=== PATIENT | male | born 1955 | race Caucasian/White ===

== ENCOUNTER 2021-03-05 15:01 | Inpatient (IN) ==
[2021-03-05] MEDS ORDERED: Naloxone 0.4 MG/ML INJ IVP PRN (16:56)
[2021-03-05] MEDS ORDERED: Ondansetron 4 MG/2 ML VIAL IVP PRN (16:56)
[2021-03-05] MEDS ORDERED: *HR* OxyCODONE/APAP 5/325 TABLET PO PRN (16:58)
[2021-03-05] MEDS ORDERED: *HR* OxyCODONE/APAP 10/325 TABLET PO PRN (16:58)
[2021-03-05] MEDS ORDERED: Ringers Solution, Lactated 1,000 ML IVC SCH (17:00)
[2021-03-05 17:37] LABS: Eosinophils % 0.1 %
[2021-03-05 17:38] LABS: Basophils % 0.2 %; Hematocrit 36.6 % (37.5-50.1); Hemoglobin 10.9 g/dL (12.9-16.9); Immature Granulocytes % 0.9 % (0-4); Lymphocytes # 0.8 K/mcL (0.6-4.6); Lymphocytes % 5.8 %; Mean Corpuscular HGB Conc 29.8 g/dL (31.6-35.5); Mean Corpuscular Hemoglobin 26.4 pg (28.0-33.3); Mean Corpuscular Volume 88.6 fL (83.0-100.0); Mean Platelet Volume 8.6 fL (9.4-12.4); Monocytes # 0.4 K/mcL (0.0-1.3); Neutrophils # 12.3 K/mcL (1.6-8.9); Platelet Count 413 K/mcL (140-400); Red Blood Count 4.13 M/mcL (4.19-5.50); Red Cell Distribution Width 19.6 % (11.5-14.5); White Blood Count 13.7 K/mcL (4.3-11.1)
[2021-03-05 17:44] LABS: INR 1.1; Prothrombin Time 12.5 Seconds (9.4-12.1)
[2021-03-05 17:47] LABS: Activated Partial Thrombo Time 26.8 Seconds (26.0-36.0)
[2021-03-05 17:49] LABS: Calcium 9.1 mg/dL (8.6-10.3); Magnesium 2.3 mg/dL (1.6-2.6); Phosphorous 3.6 mg/dL (2.7-4.5); Potassium 4.8 mEq/L (3.5-5.1)
[2021-03-05] MEDS: Ipratropium/Albuterol Neb 3 ML IH PRN ×2 (18:02→23:29)
[2021-03-05 18:19] LABS: Anisocytosis 1+ (Not Present); Hypochromasia Present (Not Present); Polychromasia 1+ (Not Present)
[2021-03-06 02:22] LABS: Adenovirus Not Detected (Not Detect); Bordetella Pertussis Not Detected (Not Detect); Chlamydophila pneumoniae Not Detected (Not Detect); Coronavirus 229E Not Detected (Not Detect); Coronavirus HKU1 Not Detected (Not Detect); Coronavirus NL63 Not Detected (Not Detect); Coronavirus OC43 Not Detected (Not Detect); Human Metapneumovirus Not Detected (Not Detect); Human Rhinovirus/Enterovirus Not Detected (Not Detect); Influenza A Subtype 2009 H1 Not Detected (Not Detect); Influenza B Not Detected (Not Detect); Mycoplasma pneumoniae Not Detected (Not Detect); Parainfluenza Virus 1 Not Detected (Not Detect); Parainfluenza Virus 2 Not Detected (Not Detect); Parainfluenza Virus 3 Not Detected (Not Detect); Parainfluenza Virus 4 Not Detected (Not Detect); Respiratory Syncytial Virus Not Detected (Not Detect); SARS-CoV-2 Not Detected (Not Detect)
[2021-03-06] MEDS: Ipratropium/Albuterol Neb 3 ML IH SCH ×6 (03:25→23:09)
[2021-03-06] MEDS ORDERED: Lidocaine 1% 20 ML MDV ONE (07:21)
[2021-03-06] MEDS ORDERED: allopurinoL 100 MG TABLET PO SCH (09:00)
[2021-03-06] MEDS ORDERED: predniSONE 10 MG TABLET PO SCH (09:00)
[2021-03-06] MEDS ORDERED: Cyanocobalamin (Vitamin B-12) 100 MCG PO SCH (09:00)
[2021-03-06] MEDS ORDERED: Clindamycin 900 MG/50 ML 900 MG/50 ML IV.SOLN IVPB ONE ×2 (09:23→09:30)
[2021-03-06] MEDS ORDERED: *HR* Propofol 200 MG/20 ML VIAL IVP ONE (09:26)
[2021-03-06] MEDS ORDERED: *HR* FentaNYL (PF) 100 MCG/2 ML VIAL ONE (09:26)
[2021-03-06] MEDS ORDERED: Ondansetron 4 MG/2 ML VIAL ONE (09:26)
[2021-03-06] MEDS ORDERED: *HR* Rocuronium Bromide 50 MG/5 ML VIAL ONE (09:26)
[2021-03-06] MEDS ORDERED: Lidocaine -MPF 2% 2 ML VIAL ONE (09:26)
[2021-03-06] MEDS ORDERED: Lidocaine -MPF 4% 5 ML AMPUL ONE (09:26)
[2021-03-06] MEDS ORDERED: *HR* Midazolam HCl 2 MG/2 ML VIAL ONE (09:26)
[2021-03-06] MEDS ORDERED: ROPIVACAINE/PF/NS 0.25% 1 EACH SYRINGE INTRAART ONE (09:38)
[2021-03-06] MEDS ORDERED: Ropivacaine/PF 0.5% 30 ML VIAL ONE (09:38)
[2021-03-06] MEDS ORDERED: Acetaminophen IV 1,000 MG/100 ML BAG IVPB ONE (10:14)
[2021-03-06] MEDS ORDERED: *HR* Succinylcholine 200 MG/10 ML VIAL IVP ONE (11:09)
[2021-03-06] MEDS ORDERED: *HR* OxyCODONE Immed Rel 5 MG TABLET PO PRN ×2 (11:56→11:59)
[2021-03-06] MEDS ORDERED: *HR* OxyCODONE/APAP 5/325 TABLET PO PRN (13:38)
[2021-03-06] MEDS ORDERED: Ondansetron 4 MG/2 ML VIAL IVP PRN (13:38)
[2021-03-06] MEDS ORDERED: *HR* OxyCODONE/APAP 10/325 TABLET PO PRN (13:38)
[2021-03-06] MEDS ORDERED: Naloxone 0.4 MG/ML INJ IVP PRN (13:38)
[2021-03-06] MEDS ORDERED: Ipratropium/Albuterol Neb 3 ML IH PRN (13:38)
[2021-03-07] MEDS: Ipratropium/Albuterol Neb 3 ML IH SCH ×3 (03:51→11:17)
[2021-03-07 07:18] VITALS: BP 136/78
[2021-03-07] MEDS ORDERED: *HR* Enoxaparin 40 MG/0.4 ML SYRINGE SQ ONE (09:00)
[2021-03-07] MEDS ORDERED: predniSONE 10 MG TABLET PO SCH (09:00)
[2021-03-07] MEDS ORDERED: Cyanocobalamin (Vitamin B-12) 100 MCG PO SCH (09:00)
[2021-03-07] MEDS ORDERED: allopurinoL 100 MG TABLET PO SCH (09:00)
== END 2021-03-07 12:00 | disposition home health service (06) | DRG 494 ==
LOC: 3NENU 16:42
PROVIDERS: ADMIT Internal Medicine; ATTEND Internal Medicine